=== PATIENT | female | born 1990 | race African-American/Black ===

== ENCOUNTER → 2017-01-08 23:59 | Emergency (ER) | payer OTHER ==
[~2017-01-08 23:59] MED LIST: BACTRIM DS TABL1 TA1 PO; BACTRIM DS TABL1 TAB PO; FLEXERIL10 MG PO; FOLIC ACID1 MG PO; KEFLEX PO; KEFLEX500 MG PO; KETOPROFEN PO; PRENATAL VITAMI1 TA3 PO; VICODIN 5/500 T1 TAB PO; VOLTAREN75 MG PO
== END | disposition home or self-care (01) ==
LOC: CED 23:59
DX: Z53.21 Procedure and treatment not carried out due to patient leaving prior to being seen by health care provider (principal)

== ENCOUNTER 2017-01-11 09:30 | Emergency (ER) | payer OTHER | END 2017-01-11 10:01 | disposition home or self-care (01) | LOC: CED 09:30 | DX: L02.31 Cutaneous abscess of buttock (principal); D64.9 Anemia, unspecified; F17.200 Nicotine dependence, unspecified, uncomplicated; Z98.890 Other specified postprocedural states; Z86.79 Personal history of other diseases of the circulatory system | CPT/HCPCS: 10060; 99283 ==

== ENCOUNTER 2017-03-21 18:46 | Emergency (ER) | payer OTHER | END 2017-03-21 18:50 | disposition left against medical advice (07) | LOC: CED 18:46 | DX: Z53.21 Procedure and treatment not carried out due to patient leaving prior to being seen by health care provider (principal) ==

== ENCOUNTER 2017-03-24 15:06 | Emergency (ER) | payer OTHER | END 2017-03-24 16:35 | disposition home or self-care (01) | LOC: CED 15:06 | DX: L03.116 Cellulitis of left lower limb (principal); L03.115 Cellulitis of right lower limb; L02.416 Cutaneous abscess of left lower limb; L02.415 Cutaneous abscess of right lower limb; F17.200 Nicotine dependence, unspecified, uncomplicated; K08.409 Partial loss of teeth, unspecified cause, unspecified class | CPT/HCPCS: 99282 ==